=== PATIENT | female | born 1965 | race African-American/Black ===

== ENCOUNTER → 2017-01-04 | Outpatient (CLI) | payer OTHER ==
[~2017-01-04] MED LIST: BENADRYL25 MG PO; PRILOSEC 20 MG20 MG PO; VENTOLIN HFA 1818 GM INH; [UNRECOGNIZED DRUG - OTHER]
== END ==
LOC: RAD 15:34
DX: M21.922 Unspecified acquired deformity of left upper arm (principal); M25.532 Pain in left wrist

== ENCOUNTER 2017-01-30 08:49 | Emergency (ER) | payer OTHER ==
[~2017-01-30] VITALS: Ht 170.2 cm; Wt 49.0 kg
[2017-01-30 10:18] LABS: ABSOLUTE NEUTROPHILS 3.1 thou/uL (1.4-8.2); BASOPHILS 0.5 % (0.0-2.0); EOSINOPHILS 0.5 % (0.0-3.0); HEMATOCRIT 40.6 % (37.0-47.0); HEMOGLOBIN 13.4 gm/dL (12.0-15.0); MCH 29.4 pg (26.0-34.0); MCHC 33.1 g/dL (28.0-37.0); MCV 88.7 fL (80.0-100.0); MONOCYTES 5.4 % (1.0-8.0); PLATELET COUNT 170 thou/uL (150-400); POLYS 54.6 % (36.0-66.0); RBC 4.57 mil/uL (4.20-5.00); RDW 13.9 % (10.5-14.5); WBC 5.7 thou/uL (4.0-11.0)
[2017-01-30 10:19] LABS: MANUAL DIFF NO
[2017-01-30 10:32] LABS: CALCIUM 9.2 mg/dL (8.5-10.1); CREATININE 0.8 mg/dL (0.6-1.0); POTASSIUM 4.2 mmol/L (3.5-5.1)
[2017-01-30 10:36] LABS: TOTAL BILIRUBIN 0.7 mg/dL (<0.1-1.0); TOTAL PROTEIN 7.1 g/dL (6.4-8.2)
[2017-01-30] MEDS ORDERED: MAGIC MOUTHWASH SWISH&SPIT (10:59)
[2017-01-30] MEDS ORDERED: MOBIC15 MG PO (10:59)
[2017-01-30 11:20] LABS: URINE BILIRUBIN NEGATIVE (Negative); URINE BLOOD NEGATIVE (Negative); URINE COLOR YELLOW; URINE GLUCOSE-RANDOM* NEGATIVE (Negative); URINE KETONES NEGATIVE (Negative); URINE NITRITE NEGATIVE (Negative); URINE PROTEIN (DIPSTICK) NEGATIVE (Negative)
[2017-01-30 11:33] VITALS: BP 126/87
== END 2017-01-30 11:34 ==
LOC: ER 08:49
PROVIDERS: Physician Assistant
DX: G89.29 Other chronic pain (principal); T46.7X5A Adverse effect of peripheral vasodilators, initial encounter; Y92.9 Unspecified place or not applicable; K14.6 Glossodynia; F17.210 Nicotine dependence, cigarettes, uncomplicated; Z86.2 Personal history of diseases of the blood and blood-forming organs and certain disorders involving the immune mechanism; Z88.0 Allergy status to penicillin; Z88.1 Allergy status to other antibiotic agents

== ENCOUNTER 2017-11-20 09:26 | Emergency (ER) | payer OTHER ==
[~2017-11-20] VITALS: Ht 170.2 cm; Wt 47.2 kg
--- NOTE | ~2017-11-20 | EKG ---
[address] [place] [address] ELECTROCARDIOGRAM REPORT Name: EVERT OCHOA Room #: [facility] [id number] Admission: 11/20/17 Attend Phys: Discharge: 11/20/17 Date of : 61 Report #: [id number] THIS REPORT FOR: //name// [facility] ED Test Date: 2017-11-20 Test Time: 10:50:24 Pat Name: EVERT OCHOA Department: Room: Gender: F Dental Assisting Instructor: Kale BERNARDO : 1965 Requested By: Singh Keene Order Number: [id number] MD: Pepito Vallejo Measurements Intervals [place] Rate: 68 P: 78 KS: 164 QRS: 69 QRSD: 89 T: 30 QT: 411 QTc: 438 Interpretive Statements Sinus rhythm Biatrial enlargement Compared to ECG 06/09/2016 20:58:50 No significant changes Electronically Signed On 11-20-2017 15:43:40 [employer] by Pepito Vallejo [email or web address] <ELECTRONICALLY SIGNED> By: Pepito Vallejo MD 11/20/17 1543 1050 49 Pepito Vallejo MD /DAVION
[~2017-11-20 09:26] MED LIST changes: +MAGIC MOUTHWASH SWISH&SPIT; +MOBIC15 MG PO
[2017-11-20 10:49] LABS: HEMATOCRIT 38.9 % (37.0-47.0); HEMOGLOBIN 12.9 gm/dL (12.0-15.0); MCH 29.3 pg (26.0-34.0); MCV 88.7 fL (80.0-100.0); RBC 4.39 mil/uL (4.20-5.00); RDW 14.8 % (10.5-14.5); WBC 6.5 thou/uL (4.0-11.0)
[2017-11-20 10:58] LABS: ANION GAP 7 mmol/L (7-16); BUN 14 mg/dL (7-18); CALCIUM 9.6 mg/dL (8.5-10.1); CHLORIDE 103 mmol/L (98-107); CO2 31 mmol/L (21-32); CREATININE 0.7 mg/dL (0.6-1.0); GLUCOSE 93 mg/dL (74-106); POTASSIUM 4.6 mmol/L (3.5-5.1); SODIUM 141 mmol/L (136-145)
[2017-11-20 11:08] LABS: ALBUMIN 3.9 g/dL (3.4-5.0); DIRECT BILIRUBIN 0.1 mg/dL (<0.1-0.3); SGOT 16 U/L (15-37); SGPT 19 U/L (30-65); TOTAL BILIRUBIN 0.7 mg/dL (<0.1-1.0); TOTAL PROTEIN 6.9 g/dL (6.4-8.2); TROPONIN-I < 0.04 ng/mL (<0.06)
[2017-11-20 11:31] VITALS: BP 113/76
[2017-11-20] MEDS ORDERED: IBUPROFEN 400400 M1 PO (11:41)
== END 2017-11-20 12:09 | disposition home or self-care (01) ==
LOC: ER 09:26
PROVIDERS: Emergency Medicine
DX: M79.641 Pain in right hand (principal); F17.210 Nicotine dependence, cigarettes, uncomplicated; Z88.0 Allergy status to penicillin; Z88.2 Allergy status to sulfonamides; Z88.1 Allergy status to other antibiotic agents; Z88.8 Allergy status to other drugs, medicaments and biological substances

== ENCOUNTER → 2021-04-27 | Outpatient (CLI) | payer OTHER ==
[~2021-04-27] VITALS: Ht 170.2 cm; Wt 88.9 kg
[~2021-04-27] MED LIST changes: +IBUPROFEN 400400 M1 PO
--- NOTE | ~2021-04-27 | HPC ---
[facility] [place] [address] PAIN MANAGEMENT CONSULTATION Name: EVERT OCHOA Room #: REG KAYLENE Pitts.#: [id number] Admission: 04/27/21 Attend Phys: Brennon Carcamo DO Discharge: Date of : 61 Report #: [id number] THIS REPORT FOR: cc: Esa Soares MD, Stanley P. MD Johnson, James E. DO ~ cc: Isidro Mcclendon MD DATE OF SERVICE: 04/27/2021 REFERRING PHYSICIAN: Dr. Isidro Mcclendon. CHIEF COMPLAINT: Neck pain. HISTORY OF PRESENT ILLNESS: As you know, the patient is a 55-year-old female who reports longstanding history of neck pain, bilateral upper back and shoulder pain. She indicates pain began 10/16/2017. No inciting injury or trauma. She does carry a diagnosis of fibromyalgia, which leads to generalized pain disorder. She has been discussing her ongoing pain with the primary care physician for an extended period of time. She has not undergone physical therapy to address her neck pain, bilateral upper back or shoulder pain. She is also not sought chiropractic manipulation or massage therapy nor does she use any [id number] medications in an attempt to improve symptoms. She indicates pain begins in the neck, radiates to the upper back and bilateral shoulders. There is no radiation of symptoms in a dermatomal distribution from the cervical region. She has been referred to our service to discuss interventional treatment options to address chronic neck pain with inciting injury or trauma. The patient indicates today pain is constant. She describes the pain as aching, pulling, gnawing, throbbing and tender. Places current pain score of 7/10, daily average at 7/10, worst pain has been is 10/10. The patient states pain is exacerbated with waking up and doing any activities and frequent movement, improves with nothing today. She has been referred to our service to discuss treatment options for chronic neck pain, upper back pain. PAST MEDICAL HISTORY: 1. Fibromyalgia. 2. Degenerative joint disease. 3. Osteoarthritis. PAST SURGICAL HISTORY: Hysterectomy. SOCIAL HISTORY: The patient denies tobacco, alcohol or IV or illicit drug use. She reports she is on disability. She has not been in the work force for years. She is not in litigation in regard to pain, accompanied by her daughter present in room today. [address] [address] PAIN MANAGEMENT CONSULTATION Name: EVERT OCHOA MIGUELINA Room #: REG [facility] Gisselle.#: [id number] Admission: 04/27/21 Attend Phys: Brennon Carcamo DO Discharge: Date of : 61 Report #: [id number] REVIEW OF SYSTEMS: Positive for frequent urination, nocturia, sexual difficulty and generalized body pain. All other review of systems negative per 12-point review of systems other than those listed in the history of present illness. Pain impact score of 54/70 indicating severe interference of daily activities secondary to pain. ALLERGIES: PENICILLIN, ERYTHROMYCIN, SULFAMETHOXAZOLE, TRIAMTERENE AND DULOXETINE. CURRENT MEDICATIONS: Vitamin D with calcium. IMAGING STUDIES: X-ray of the cervical spine shows mild degenerative changes C5-C6 and C6-C7, disk space narrowing is noted at these levels. She has mild scoliotic curvature. PQRS: The patient has known mild arthritic changes of the cervical spine, bilateral shoulders, hips and knees. No rheumatoid arthritis. She is placing pain at 7/10. She is not a fall risk, does not have fall in last 3 months. She is not on blood thinners nor is she treated for hypertension. She is not on chronic opioids. She has a high opioid addiction potential. SOCIAL HISTORY: The patient denies IV or illicit drug use. Denies any type of occupation. She partake in cigarettes 1 pack a day for about 25 years and she partake daily marijuana use. She is not in litigation in regard to pain, but is on disability income. She is accompanied by her daughter present in room today. PHYSICAL EXAMINATION: VITAL SIGNS: Blood pressure 145/87, pulse 76, respiratory rate 16 and unlabored. The patient 100% on room air. Height 5 feet 7 inches tall, weight 196 pounds, BMI calculated 30.7. GENERAL: Well-developed, well-nourished, well-hydrated 55-year-old female, appears much older than stated age, smells of tobacco smoke, placing current pain score of 7/10. HEENT: Normocephalic and atraumatic. Pupils are equal, round and responsive. The patient is wearing a mask in compliance with COVID-19 regulations. LUNGS: Appear clear. No appreciable wheezes, rhonchi or rales. CARDIOVASCULAR: Regular. No appreciable gallop, no rub. ABDOMEN: Soft. EXTREMITIES: Show no clubbing, no cyanosis and no appreciable edema. MUSCULOSKELETAL: Upper extremity strength equal and symmetrical with decondition. Muscle bulk and tone equal and symmetrical in upper extremities. Spurling's test is negative. Cervical provocation testing is met with slight increase in axial back pain, no radiation of symptoms. There are multiple tender points, no specific trigger points in the cervical area. Deep tendon reflexes are equal and symmetrical with diminished biceps, brachialis and [facility] [address] [place] [address] PAIN MANAGEMENT CONSULTATION Name: EVERT OCHOA Room #: REG CLRanjeet Pitts#: [id number] Admission: 04/27/21 Attend Phys: Brennon Carcamo DO Discharge: Date of : 61 Report #: [id number] triceps, this is noted bilaterally. Cervical rotation is mildly restricted secondary to reported pain. ASSESSMENT: 1. Chronic neck pain. 2. Cervical spondylosis without radiculopathy. 3. Myofascial pain. PLAN: 1. Based on today's physical exam and history the patient has provided, the description the patient uses in regard to pain as well as location of symptoms and the lack of any significant findings and imaging, it would appear the patient is suffering from myofascial symptoms and possible chronic neck symptoms secondary to osteoarthritic changes. We discussed with the patient the treatment options, we have to address her chronic neck pain following was discussed with the patient today. I was unimpressed with any radicular component of the patient's symptoms on physical exam, Spurling's test was negative. We did discuss the treatment options we have available chronic neck pain which are as follows: We discussed physical therapy, stretching exercises and traction techniques as the gold standard of treatment for myofascial pain. We discussed cervical epidural injection as a way to treat symptoms. We did discuss facet injections of the cervical spine, but these are no longer covered by insurance and is considered as experimental. If she wishes to look towards this type of option, she would have to be referred to another clinic where she will have to pay for procedures out of pocket. We also discussed options of surgery, though given the minor findings on x-ray imaging I do not feel she is a candidate for surgery. After reviewing the risks and benefits of all proposed treatment options, the patient chose to begin with a cervical epidural injection under fluoroscopic guidance. 2. The patient was advised due to third democrat payer restrictions authorization would have to be obtained before the patient could undergo a cervical epidural injection. We will begin that authorization process immediately. Once it has been completed, we will have the patient return to undergo cervical epidural injection under fluoroscopic guidance to address chronic neck and upper back pain. 3. No medication changes made at today's visit. The patient will continue current medical therapy as prior prescribed. 4. We plan to see the patient back in followup visit once we have authorization to undergo requested cervical epidural injection. 5. We wish to thank Dr. Mcclendon for the referral of the patient to our clinic. We will keep you apprised of response to treatment as we address chronic neck pain [address] [address] PAIN MANAGEMENT CONSULTATION Name: EVERT OCHOA MIGUELINA Room #: REG CL Lenore#: [id number] Admission: 04/27/21 Attend Phys: Brennon Carcamo DO Discharge: Date of : 61 Report #: [id number] and upper back pain. Again, we wish to thank you for the opportunity to see the patient in consultation. By: [id number] 11 Brennon Carcamo DO /nt
[2021-04-27 13:40] VITALS: BP 145/87
--- NOTE | 2021-04-27 14:01 | NUR ---
Pain Clinic Assessment: 1. History of Osteoarthritis: Not Applicable History of Rheumatoid Arthritis: Not Applicable 2. Height: 5 ft. 7 in. 170.2 cm. Weight: 196.0 lb. oz. 88.905 kg. Patient's BMI: 30.7 3. Vital Signs: BP: 145/87 Pulse: 76 Resp: 16 Temp: 02 Sat: 100 ECG Mon: 4. Pain Intensity: 7 5. Fall Risk: Dizziness: N Needs help standing or walking: N Fallen in the last 3 months: N Fall risk comments: 6. Patient on Blood Thinner: None 7. History of Hypertension: N 8. Opioid Therapy greater than 6 weeks: N Opiate Contract Signed: 9. Risk Assessment Tool Provided: LOW 10. Functional Assessment Tool: 54/70 11. Recreational Drug Use: Past greater than 3 mos Drug Type: MARIJUANIA Tobacco Use: Former Smoker Tobacco Type: Cigarettes Amount or Packs/day: 1 How Many Years: 25 Alcohol Use: Yes Frequency: Special Occasions Quant: 2-3
== END ==
LOC: PAIN 08:17
PROVIDERS: ATTEND Anesthesiology Pain Medicine
DX: M47.22 Other spondylosis with radiculopathy, cervical region (principal); G89.4 Chronic pain syndrome; M79.10 Myalgia, unspecified site; Z79.899 Other long term (current) drug therapy; Z79.891 Long term (current) use of opiate analgesic